=== PATIENT | female | born 1930 | race Caucasian/White ===

== ENCOUNTER 2018-05-25 11:19 | Observation (INO) ==
--- NOTE | 2018-05-25 11:44 | ED ---
HPI General Chief complaint: Chest Pain Stated complaint: Chest pain Time Seen by Provider: 05/25/18 11:29 Source: patient Mode of arrival: ambulatory Limitations: no limitations History of Present Illness HPI narrative: This 87-year-old female had chest pain while sitting in a car today. It was a left-sided pain which traveled to the right side of her chest. She is not quite sure how long it lasts she thinks about 10 minutes. She was short of breath with the pain. She is visiting here from [place]. She does have a history of coronary artery disease according to her daughter she has had an [place] in the past so the patient herself was not sure. She has not had recent chest pain. She says the pain was severe when she was having it. She is not having it now. It was quite sharp and left-sided. Patient does have a history of hiatal hernia and ate liver and onions last night. Related Data Home Medications Medication Instructions Recorded Confirmed aspirin [Aspir-81] 81 mg PO DAILY 05/25/18 05/25/18 fluoxetine 20 mg PO DAILY 05/25/18 05/25/18 furosemide [Lasix] 40 mg PO DAILY 05/25/18 05/25/18 gabapentin 15 mg/kg PO TID 05/25/18 05/25/18 gabapentin 300 mg PO DAILY 05/25/18 05/25/18 lisinopril 10 mg PO DAILY 05/25/18 05/25/18 lisinopril 10 mg PO DAILY 05/25/18 05/25/18 metoprolol succinate 25 mg PO DAILY 05/25/18 05/25/18 potassium chloride [Klor-Con M20] 20 meq PO BID 05/25/18 05/25/18 Allergies Allergy/AdvReac Type Severity Reaction Status Date / Time No Known Allergies Allergy Unverified 05/25/18 11:22 Review of Systems ROS: all other systems reviewed are negative [facility] Social History Social History Substance History: No History of Abuse Second Hand Smoke Exposure: No Smoking Status: Never smoker How Often Do You Have a Drink Containing Alcohol: Never Recent Travel in [facility] within the Last 8 Weeks: No Recent Out of Country Travel within the Last 8 Weeks: No Immunization History Tetanus Immunization: Unsure Hx Influenza Vaccine This Season: No Exam Narrative Exam Narrative: GENERAL: Well-developed female SKIN: Focused skin assessment warm/dry. HEAD: Atraumatic. Normocephalic. EYES: Pupils equal and round. No scleral icterus. No injection or drainage. ENT: No nasal bleeding or discharge. Mucous membranes pink and moist. NECK: Trachea midline. No JVD. CARDIOVASCULAR: Regular rate and rhythm. No murmur appreciated. RESPIRATORY: No accessory muscle use. Clear to auscultation. Breath sounds equal bilaterally. There is some mild left-sided chest wall tenderness GASTROINTESTINAL: Abdomen soft, non-tender, nondistended. Hepatic and splenic margins not palpable. MUSCULOSKELETAL: No obvious deformities. No clubbing. No cyanosis. No edema. NEUROLOGICAL: Awake and alert. No obvious cranial nerve deficits. Motor grossly within normal limits. Normal speech. PSYCHIATRIC: Appropriate mood and affect; insight and judgment normal. Course Initial Documented Vital Signs Temperature 97.9 F 05/25/18 11:26 Pulse Rate 80 05/25/18 11:26 Respiratory Rate 14 05/25/18 11:26 Blood Pressure 187/71 H 05/25/18 11:26 Pulse Oximetry 95 05/25/18 11:26 Last Documented Vital Signs Temperature 97.9 F 05/25/18 11:26 Pulse Rate 72 05/25/18 12:31 Respiratory Rate 16 05/25/18 12:31 Blood Pressure 135/81 05/25/18 12:31 Pulse Oximetry 95 05/25/18 12:31 Medical Decision Making [facility] Narrative Medical decision making narrative: This lady has a history of coronary artery disease and had an episode of chest pain today which lasted for about 10 minutes but was quite severe and associated with shortness of breath. Her workup at this point is negative but I think she needs further evaluation and chest pain center. Chest x-ray suggests that there may be a hiatal hernia and the patient does have a history of hiatal hernia Medical Screen Exam Complete: Yes Emergency Medical Condition: Yes Differential Diagnosis Differential Diagnosis: Differential includes chest wall pain, hiatal hernia, coronary artery disease Lab Data Result diagrams: 05/25/18 11:50 05/25/18 11:50 Lab Results 05/25/18 05/25/18 Range/Units 11:50 11:50 CBC w Diff Auto diff final WBC 9.9 (4.0-11.0) th/mm3 RBC 4.21 (4.00-5.30) mil/mm3 Hgb 13.3 (11.6-15.3) gm/dL Hct 39.4 (35.0-46.0) % MCV 93.6 (80.0-100.0) fL MCH 31.5 (27.0-34.0) pg MCHC 33.7 (32.0-36.0) % RDW 13.3 (11.6-17.2) % Plt Count 285 (150-450) th/mm3 MPV 8.2 (7.0-11.0) fL Neut % (Auto) 79.7 H (16.0-70.0) % Lymph % (Auto) 16.3 (9.0-44.0) % [place] % (Auto) 3.6 (0.0-8.0) % Eos % (Auto) 0.1 (0.0-4.0) % Baso % (Auto) 0.3 (0.0-2.0) % Neut # (Auto) 7.9 H (1.8-7.7) th/mm3 Lymph # (Auto) 1.6 (1.0-4.8) th/mm3 [place] # (Auto) 0.4 (0.0-0.9) th/mm3 Eos # (Auto) 0.0 (0.0-0.4) th/mm3 Baso # (Auto) 0.0 (0.0-0.2) th/mm3 WBC Differential . Differential Comment . Sodium 141 (136-145) meq/L Potassium 4.0 (3.5-5.1) meq/L Chloride 104 (98-107) meq/L Carbon Dioxide 27.2 (21.0-32.0) meq/L Anion Gap 10 (5-15) meq/L BUN 46 H (7-18) mg/dL Creatinine 1.40 H (0.50-1.00) mg/dL Estimated GFR 35 L (>89) mL/min Random Glucose 101 (74-106) mg/dL Calcium 8.3 L (8.5-10.1) mg/dL Total Bilirubin 0.4 (0.2-1.0) mg/dL AST 23 (15-37) U/L ALT 26 (10-53) U/L Alkaline Phosphatase 101 (45-117) U/L Troponin I Less than 0.02 L (0.02-0.05) ng/mL Total Protein 7.8 (6.4-8.2) g/dL Albumin 3.8 (3.4-5.0) g/dL Imaging Data Radiologist's impression: Chest X-Ray 05/25/18 11:40 CONCLUSION: Rounded density within the retrocardiac region of the left lung base which is indeterminate. Differential includes hiatal hernia, lobulation of the diaphragm or possible lung mass. Lateral view of the chest may be helpful for further characterization of this finding. Discharge Plan Discharge Disposition Patient Disposition: 30 Still Patient Discharge Details Diagnosis: Chest pain Physicians Team ED Provider: Maximiliano Holm Primary Care Provider: Primary Care Caitlyn Callejas Rxs /Orders / Referrals /Forms Prescriptions: No Action furosemide [Lasix] 40 mg Tablet 40 mg PO DAILY RF: 0 aspirin [Aspir-81] 81 mg Tablet,Delayed Release (Dr/Ec) 81 mg PO DAILY RF: 0 potassium chloride [Klor-Con M20] 20 mEq Tablet,Er Particles/Crystals 20 meq PO BID RF: 0 fluoxetine 20 mg Tablet 20 mg PO DAILY RF: 0 lisinopril 10 mg Tablet 10 mg PO DAILY RF: 0 lisinopril 10 mg Tablet 10 mg PO DAILY RF: 0 gabapentin 300 mg Capsule 300 mg PO DAILY RF: 0 gabapentin 100 mg Capsule 15 mg/kg PO TID RF: 0 metoprolol succinate 25 mg Tablet Extended Release 24 Hr 25 mg PO DAILY RF: 0 Discharge Instructions Patient Printed Instructions: Chest Pain (ED) Status ED Status: With Doctor
[2018-05-25 12:01] LABS: Baso % (Auto) 0.3 % (0.0-2.0); Eos % (Auto) 0.1 % (0.0-4.0); Hematocrit 39.4 % (35.0-46.0); Hemoglobin 13.3 gm/dL (11.6-15.3); Lymph # (Auto) 1.6 th/mm3 (1.0-4.8); Lymph % (Auto) 16.3 % (9.0-44.0); Mean Corpuscular HGB Conc 33.7 % (32.0-36.0); Mean Corpuscular Hemoglobin 31.5 pg (27.0-34.0); Mean Corpuscular Volume 93.6 fL (80.0-100.0); Mean Platelet Volume 8.2 fL (7.0-11.0); Mono # (Auto) 0.4 th/mm3 (0.0-0.9); Mono % (Auto) 3.6 % (0.0-8.0); Neut # (Auto) 7.9 th/mm3 (1.8-7.7); Neut % (Auto) 79.7 % (16.0-70.0); Platelet Count 285 th/mm3 (150-450); Red Blood Count 4.21 mil/mm3 (4.00-5.30); Red Cell Distribution Width 13.3 % (11.6-17.2); White Blood Count 9.9 th/mm3 (4.0-11.0)
[2018-05-25 12:13] LABS: Chloride 104 meq/L (98-107); Sodium 141 meq/L (136-145)
[2018-05-25 12:16] LABS: Calcium 8.3 mg/dL (8.5-10.1)
[2018-05-25 12:17] LABS: Albumin 3.8 g/dL (3.4-5.0); Anion Gap 10 meq/L (5-15); Blood Urea Nitrogen 46 mg/dL (7-18); Carbon Dioxide 27.2 meq/L (21.0-32.0); Glucose,Random 101 mg/dL (74-106)
[2018-05-25 12:20] LABS: Alanine Aminotransferase 26 U/L (10-53); Aspartate Aminotransferase 23 U/L (15-37); Glomerular Filtration Rate 35 mL/min (>89)
--- NOTE | 2018-05-25 12:21 | XR ---
EXAM DATE: 05/25/2018 11:40 AM EDT AGE/SEX: 87 years / Female INDICATIONS: Left sided chest pain & shortness of breath. CLINICAL DATA: This is the patient's initial encounter. Patient reports that signs and symptoms have been present for 1 day and indicates a pain score of 9/10. MEDICAL/SURGICAL HISTORY: Myocardial infarction. CAD. None. COMPARISON: No prior exams available for comparison. FINDINGS: There is a rounded density within the retrocardiac region of the left lung base which is indeterminat e. Differential includes hiatal hernia, lobulation of the diaphragm or possible lung mass. Lateral vi ew of the chest may be helpful for further characterization of this finding. There is no pulmonary ed adonay. No infiltrate is noted. The heart is normal. CONCLUSION: Rounded density within the retrocardiac region of the left lung base which is indeterminate. Differen tial includes hiatal hernia, lobulation of the diaphragm or possible lung mass. Lateral view of the c hest may be helpful for further characterization of this finding. Electronically signed by: Nixon Cisneros MD 05/25/2018 12:20 PM EDT
[2018-05-25 12:22] LABS: Total Protein 7.8 g/dL (6.4-8.2)
[2018-05-25 12:23] LABS: Alkaline Phosphatase 101 U/L (45-117)
[2018-05-25] MEDS ORDERED: Acetaminophen 500 MG Tablet PO PRN (13:16)
[2018-05-25] MEDS: Heparin - SQ 10,000 UNITS/ML Vial SQ SCH ×2 (13:27→21:09)
[2018-05-25 14:54] LABS: Bilirubin,Urine Negative (Negative); Clarity,Urine Clear (Clear); Glucose,Urine (UA) Negative (Negative); Leukocyte Esterase,Urine Negative (Negative); Nitrite,Urine Negative (Negative); Urobilinogen,Urine 0.2 mg/dL (Less than 2)
[2018-05-25 14:55] LABS: Color,Urine Straw (Yellw/Straw)
[2018-05-25 15:02] LABS: Squamous Epithelial Cell,Urine 0-5 /hpf (0-5); WBC,Urine 0-5 /hpf (0-5)
[2018-05-25 15:03] LABS: Bacteria,Urine Moderate /hpf
--- NOTE | 2018-05-25 15:19 | P.HP ---
History of Present Illness Primary Care Physician: No Primary Care Physician Chief Complaint: Chest pain History of Present Illness: This is an 87-year-old female patient with a known medical history of CAD and hypertension who presented to the ED with chest pain. Patient states that she was driving around as a passenger in the car today she developed a sudden left- sided chest pain that radiated to the right side of her chest, was characteristically heavy in nature, lasted roughly 5 minutes and then went away on its own. Patient states the severity was an 8 out of 10 at its worst on pain scale, denies any associated nausea, vomiting, sweating or shortness of breath. Patient states that she rested and drank some water and states that the pain went away. Denies any worsening factors. Patient does admit to a recent earache several weeks ago was on antibiotics with subjective fevers, states that this has resolved. She denies any recent headache, shortness of breath, dumping, nausea, vomiting, diarrhea or dysuria. She does live in [place], she is visiting here with her family, states she flew down here via plane. She does see a associate software application engineer in [place], is a relatively poor historian and does not remember the last time she underwent a stress test. She follows closely with her PCP. Denies any new changes to her medications. Patient states that she did not take any medications today. Denies any tobacco abuse. - Diagnosis (1) Chest pain Review of Systems All other systems reviewed negative except as stated in HPI PMFSH - History History Provided By: Patient - Medical History Medical History: Medical History (Last Updated 05/25/18 @ 15:58 by Janae Garcia) Coronary artery disease Hypertension - Surgical History Surgical History: Surgical History (Last Updated 05/25/18 @ 15:58 by Janae Garcia) History of appendectomy Hx of foot surgery - Family History Family History: Family History (Last Updated 05/25/18 @ 15:58 by Janae Garcia) Other Family history non-contributory - Tobacco History Second Hand Smoke Exposure: No Tobacco Use In Past 30 Days: No Smoking Status: Never smoker - Alcohol History How Often Do You Have a Drink Containing Alcohol: Never - Substance Use History Substance History: No History of Abuse - Travel History Recent Travel in the [place] Within the Last 8 Weeks: No Recent Travel Out of the Country Within the Last 8 Weeks: No - Immunization History Tetanus Immunization: Unsure Hx Influenza Vaccine This Season: No Medications and Allergies Active Medications: Active Medications Acetaminophen (Tylenol) 500 mg PO Q4H PRN PRN Reason: HEADACHE Heparin Sodium (Porcine) (Heparin Inj) 5,000 units SQ Q12HR SE[place]OUR Last Admin: 05/25/18 13:27 Dose: 5,000 units Ondansetron HCl (Zofran Inj) 4 mg IV.PUSH Q6H PRN PRN Reason: NAUSEA Sodium Chloride (Ns Flush) 2 ml IV.FLUSH BID [place] Sodium Chloride (Ns Flush) 2 ml IV.FLUSH PRN PRN PRN Reason: FLUSH AFTER USING IV ACCESS Allergies Allergy/AdvReac Type Severity Reaction Status Date / Time No Known Allergies Allergy Unverified 05/25/18 11:22 Home Medications Medication Instructions Recorded Confirmed Type aspirin [Aspir-81] 81 mg PO DAILY 05/25/18 05/25/18 History fluoxetine 20 mg PO DAILY 05/25/18 05/25/18 History furosemide [Lasix] 40 mg PO DAILY 05/25/18 05/25/18 History gabapentin 15 mg/kg PO TID 05/25/18 05/25/18 History gabapentin 300 mg PO DAILY 05/25/18 05/25/18 History lisinopril 10 mg PO DAILY 05/25/18 05/25/18 History lisinopril 10 mg PO DAILY 05/25/18 05/25/18 History metoprolol succinate 25 mg PO DAILY 05/25/18 05/25/18 History potassium chloride [Klor-Con M20] 20 meq PO BID 05/25/18 05/25/18 History Exam Vital signs: Vital Signs 05/25/18 11:26 05/25/18 11:51 05/25/18 11:52 Temperature 97.9 F Pulse Rate 80 Respiratory Rate 14 Blood Pressure 187/71 H Pulse Oximetry 95 95 98 05/25/18 12:31 Temperature Pulse Rate 72 Respiratory Rate 16 Blood Pressure 135/81 Pulse Oximetry 95 Intake & Output 05/24/18 05/25/18 05/25/18 18:59 06:59 18:59 Weight 82 kg Narrative: GENERAL: Well-developed, well-nourished patient elderly female in NAD. SKIN: Warm and dry. No rash. HEAD: Normocephalic. Atraumatic. EYES: Pupils equal and round. No scleral icterus. No injection or drainage. ENT: No nasal bleeding or discharge. Mucous membranes pink and moist. NECK: Supple. Trachea midline. CARDIOVASCULAR: Regular rate and rhythm. S1, S2 noted. No murmur appreciated. Left-sided rib pain to palpation RESPIRATORY: No accessory muscle use. Clear to auscultation. Breath sounds equal bilaterally. GASTROINTESTINAL: Abdomen soft, non-tender, nondistended. Normoactive bowel sounds x4. MUSCULOSKELETAL: No obvious deformities. Extremities without clubbing, cyanosis , or edema. NEUROLOGICAL: Awake and alert. No obvious cranial nerve deficits. Motor grossly within normal limits. 5/5 muscle strength in bilateral upper and lower extremities. Normal speech. PSYCHIATRIC: Appropriate mood and affect; insight and judgment normal. Results - Labs CBC & Chem 7: 05/25/18 11:50 05/25/18 11:50 Labs: Laboratory Results - last 24 hr 05/25/18 05/25/18 05/25/18 11:50 11:50 12:18 CBC w Diff Auto diff final WBC 9.9 RBC 4.21 Hgb 13.3 Hct 39.4 MCV 93.6 MCH 31.5 MCHC 33.7 RDW 13.3 Plt Count 285 MPV 8.2 Neut % (Auto) 79.7 H Lymph % (Auto) 16.3 [place] % (Auto) 3.6 Eos % (Auto) 0.1 Baso % (Auto) 0.3 Neut # (Auto) 7.9 H Lymph # (Auto) 1.6 [place] # (Auto) 0.4 Eos # (Auto) 0.0 Baso # (Auto) 0.0 WBC Differential . Differential Comment . Sodium 141 Potassium 4.0 Chloride 104 Carbon Dioxide 27.2 Anion Gap 10 BUN 46 H Creatinine 1.40 H Estimated GFR 35 L Random Glucose 101 Calcium 8.3 L Total Bilirubin 0.4 AST 23 ALT 26 Alkaline Phosphatase 101 Troponin I Less than 0.02 L Total Protein 7.8 Albumin 3.8 Ur Collection Type Clean catch Urine Color Straw Urine Clarity Clear Urine pH 5.0 Ur Specific [place] 1.010 Urine Protein Negative Urine Glucose (UA) Negative Urine Ketones Negative Urine Occult Blood Negative Urine Nitrate Negative Urine Bilirubin Negative Urine Urobilinogen 0.2 Ur Leukocyte Esterase Negative Urine WBC 0-5 Ur Squamous Epith Cells 0-5 Urine Bacteria Moderate H Ur Microscopic Review Microscopic reviewed - Imaging Impressions Chest X-Ray 05/25/18 11:40 CONCLUSION: Rounded density within the retrocardiac region of the left lung base which is indeterminate. Differential includes hiatal hernia, lobulation of the diaphragm or possible lung mass. Lateral view of the chest may be helpful for further characterization of this finding. Caprini VTE Risk Assessment Caprini VTE Risk Assessment: Moderate/High Risk (score >= 2) Caprini Risk Assessment Model: Point Value = 1 Point Value = 2 Point Value = 3 Point Value = 5 Age 41-60 Minor surgery BMI > 25 kg/m2 Swollen legs Varicose veins or History of unexplained or recurrent spontaneous Oral contraceptives or hormone replacement Sepsis (< 1 month) Serious lung disease, including pneumonia (< 1 month) Abnormal pulmonary function Acute myocardial infarction Congestive heart failure (< 1 month) History of inflammatory bowel disease Medical patient at bed rest Age 61-74 Arthroscopic surgery Major open surgery (> 45 min) Laparoscopic surgery (> 45 min) Malignancy Confined to bed (> 72 hours) Immobilizing plaster cast Central venous access Age >= 75 History of VTE Family history of VTE Factor V Leiden Prothrombin [id number] Lupus anticoagulant Anticardiolipin antibodies Elevated serum homocysteine Heparin-induced thrombocytopenia Other congenital or acquired thrombophilia Stroke (< 1 month) Elective arthroplasty Hip, pelvis, or leg fracture Acute spinal cord injury (< 1 month) Prophylaxis Regimen: Total Risk Factor Score Risk Level Prophylaxis Regimen 0-1 Low Early ambulation 2 Moderate Order ONE of the following: *Sequential Compression Device (SCD) *Heparin 5000 units SQ BID 3-4 Higher Order ONE of the following medications: *Heparin 5000 units SQ TID *Enoxaparin/Lovenox 40 mg SQ daily (WT < 150 kg, CrCl > 30 mL/min) *Enoxaparin/Lovenox 30 mg SQ daily (WT < 150 kg, CrCl > 10-29 mL/min) *Enoxaparin/Lovenox 30 mg SQ BID (WT < 150 kg, CrCl > 30 mL/min) AND/OR *Sequential Compression Device (SCD) 5 or more Highest Order ONE of the following medications: *Heparin 5000 units SQ TID (Preferred with Epidurals) *Enoxaparin/Lovenox 40 mg SQ daily (WT < 150 kg, CrCl > 30 mL/min) *Enoxaparin/Lovenox 30 mg SQ daily (WT < 150 kg, CrCl > 10-29 mL/min) *Enoxaparin/Lovenox 30 mg SQ BID (WT < 150 kg, CrCl > 30 mL/min) AND *Sequential Compression Device (SCD) Assessment and Plan - Assessment (1) Chest pain Code(s): R07.9 - Chest pain, unspecified Status: Acute - Plan This is a an 87-year-old female patient with Chest pain, atypical -Patient complaint of left sided chest pain x 10 minutes today. Has reproducible chest pain to palpation of left rib. -Patient has been admitted to the observation center for chest pain. Serial EKGs and serial troponins have been ordered for ruling out ACS purposes. Initial troponin flat. We will continue to monitor trend. EKG reviewed showing no ST changes to indicate any ischemia. Controlled heart rate. -Continued on cardiac telemetry, monitor for any arrhythmias overnight. -Supplemental O2 as needed, keep sats above 90%. Patient comfortable on room air. -CBC and BMP reviewed, essentially unremarkable. -Chest x-ray reviewed showing some rounded density in the left lower lung. Suggesting further imaging of the lateral view. This is been ordered. Will follow. -Cardiac diet as tolerated. -Aspirin has been given in ED. -Will continue to monitor. Supportive care. Hypertension Blood pressure elevated upon presentation. Patient did not take her medications today. Will resume home medications. Monitor blood pressure trends. DVT prophylaxis: SCDs. ambulation. Heparin. (1) Chest pain Qualifiers: Chest pain type: unspecified Qualified Code(s): R07.9 - Chest pain, unspecified
[2018-05-25 15:31] LABS: Creatine Kinase 84 U/L (26-192)
[2018-05-25] MEDS ORDERED: Furosemide 40 MG Tablet PO SCH (16:15)
[2018-05-25] MEDS ORDERED: Lisinopril 10 MG Tablet PO SCH (16:15)
--- NOTE | 2018-05-25 17:04 | XR ---
EXAM DATE: 05/25/2018 12:00 AM EDT AGE/SEX: 87 years / Female INDICATIONS: . Left sided chest pain, evaluate for left lower lung mass. CLINICAL DATA: This is the patient's subsequent encounter. Patient reports that signs and symptoms h ave been present for 1 day and indicates a pain score of 5/10. MEDICAL/SURGICAL HISTORY: . Myocardial infarction. CAD. None. COMPARISON: [facility], CHEST 1V SINGLE AP, 05/25/2018. . FINDINGS: The masslike area identified on the patient's prior chest x-ray in the left lower chest has the appearance of an eventrated hemidiaphragm, however a subdiaphragmatic mass is difficult to exclu de at this site. 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 Electronically signed by: Vianca Simon MD 05/25/2018 5:03 PM EDT
[2018-05-25 18:37] LABS: Creatine Kinase 65 U/L (26-192)
--- NOTE | 2018-05-26 08:07 | P.PNIM ---
Subjective Interval history: Follow up left sided rib pain. Patient seen and examined, sitting up in bed in [facility]. Patient slept well. No reports of any acute events overnight. Left- sided chest discomfort has improved. Chest x-ray results reviewed. There is some masslike area on her left lower rib cage. Image report given to patient advised to [place] Tums have improved. Advised to use NSAIDs and supportive therapy heat/cold therapy as needed. She is stable at this time and agreeable to plan. Physical Exam Vital signs: Vital Signs 05/25/18 11:26 05/25/18 11:51 05/25/18 11:52 Temperature 97.9 F Pulse Rate 80 Respiratory Rate 14 Blood Pressure 187/71 H Pulse Oximetry 95 95 98 05/25/18 12:31 05/25/18 16:00 05/25/18 19:29 Temperature 96.6 F L Pulse Rate 72 75 74 Respiratory Rate 16 18 Blood Pressure 135/81 158/78 H Pulse Oximetry 95 95 05/25/18 19:30 05/25/18 20:00 05/25/18 23:42 Temperature 97.5 F L Pulse Rate 75 Respiratory Rate 20 Blood Pressure 142/65 H 142/64 H Pulse Oximetry 96 97 05/25/18 23:53 05/26/18 00:00 05/26/18 04:08 Temperature 96.6 F L 97.1 F L Pulse Rate 73 74 65 Respiratory Rate 20 18 Blood Pressure 126/84 Pulse Oximetry 98 96 Intake & Output 05/25/18 05/26/18 05/26/18 18:59 06:59 18:59 Intake Total 360 / 360 0 / 0 Balance 360 / 360 0 / 0 Weight 82 kg 82.3 kg Intake: Oral 360 / 360 0 / 0 Other: # Voids 0 1 Date of Last Bowel Movement 05/24/18 # Bowel Movements 0 Weight On Admission 82 kg Narrative: GENERAL: Well-developed, well-nourished patient elderly female in [facility]. SKIN: Warm and dry. No rash. HEAD: Normocephalic. Atraumatic. EYES: Pupils equal and round. No scleral icterus. No injection or drainage. ENT: No nasal bleeding or discharge. Mucous membranes pink and moist. NECK: Supple. Trachea midline. CARDIOVASCULAR: Regular rate and rhythm. S1, S2 noted. No murmur appreciated. Left-sided rib pain to palpation RESPIRATORY: No accessory muscle use. Clear to auscultation. Breath sounds equal bilaterally. GASTROINTESTINAL: Abdomen soft, non-tender, nondistended. Normoactive bowel sounds x4. MUSCULOSKELETAL: No obvious deformities. Extremities without clubbing, cyanosis , or edema. NEUROLOGICAL: Awake and alert. No obvious cranial nerve deficits. Motor grossly within normal limits. 5/5 muscle strength in bilateral upper and lower extremities. Normal speech. PSYCHIATRIC: Appropriate mood and affect; insight and judgment normal. Results - Labs CBC & Chem 7: 05/25/18 11:50 05/25/18 11:50 Laboratory Results - last 24 hr 05/25/18 05/25/18 05/25/18 11:50 11:50 12:18 CBC w Diff Auto diff final WBC 9.9 RBC 4.21 Hgb 13.3 Hct 39.4 MCV 93.6 MCH 31.5 MCHC 33.7 RDW 13.3 Plt Count 285 MPV 8.2 Neut % (Auto) 79.7 H Lymph % (Auto) 16.3 [place] % (Auto) 3.6 Eos % (Auto) 0.1 Baso % (Auto) 0.3 Neut # (Auto) 7.9 H Lymph # (Auto) 1.6 [place] # (Auto) 0.4 Eos # (Auto) 0.0 Baso # (Auto) 0.0 WBC Differential . Differential Comment . Sodium 141 Potassium 4.0 Chloride 104 Carbon Dioxide 27.2 Anion Gap 10 BUN 46 H Creatinine 1.40 H Estimated GFR 35 L Random Glucose 101 Calcium 8.3 L Total Bilirubin 0.4 AST 23 ALT 26 Alkaline Phosphatase 101 Total Creatine Kinase Troponin I Less than 0.02 L Total Protein 7.8 Albumin 3.8 Ur Collection Type Clean catch Urine Color Straw Urine Clarity Clear Urine pH 5.0 Ur Specific [place] 1.010 Urine Protein Negative Urine Glucose (UA) Negative Urine Ketones Negative Urine Occult Blood Negative Urine Nitrate Negative Urine Bilirubin Negative Urine Urobilinogen 0.2 Ur Leukocyte Esterase Negative Urine WBC 0-5 Ur Squamous Epith Cells 0-5 Urine Bacteria Moderate H Ur Microscopic Review Microscopic reviewed 05/25/18 05/25/18 14:50 17:55 CBC w Diff WBC RBC Hgb Hct MCV MCH MCHC RDW Plt Count MPV Neut % (Auto) Lymph % (Auto) [place] % (Auto) Eos % (Auto) Baso % (Auto) Neut # (Auto) Lymph # (Auto) [place] # (Auto) Eos # (Auto) Baso # (Auto) WBC Differential Differential Comment Sodium Potassium Chloride Carbon Dioxide Anion Gap BUN Creatinine Estimated GFR Random Glucose Calcium Total Bilirubin AST ALT Alkaline Phosphatase Total Creatine Kinase 84 65 Troponin I Less than 0.02 L Less than 0.02 L Total Protein Albumin Ur Collection Type Urine Color Urine Clarity Urine pH Ur Specific [place] Urine Protein Urine Glucose (UA) Urine Ketones Urine Occult Blood Urine Nitrate Urine Bilirubin Urine Urobilinogen Ur Leukocyte Esterase Urine WBC Ur Squamous Epith Cells Urine Bacteria Ur Microscopic Review - Imaging Impressions Chest X-Ray 05/25/18 00:00 CONCLUSION: Probable eventrated hemidiaphragm on the left side corresponding to the masslike area seen on the patient's prior chest x-ray could be further characterized with chest CT without contrast based on clinical grounds. Chest X-Ray 05/25/18 11:40 CONCLUSION: Rounded density within the retrocardiac region of the left lung base which is indeterminate. Differential includes hiatal hernia, lobulation of the diaphragm or possible lung mass. Lateral view of the chest may be helpful for further characterization of this finding. Assessment and Plan - Assessment (1) Chest pain Code(s): R07.9 - Chest pain, unspecified Status: Acute - Plan This is a an 87-year-old female patient with Chest pain, atypical Left-sided chest mass -Patient complaint of left sided chest pain x 10 minutes today. Has reproducible chest pain to palpation of left rib. -Patient has been admitted to the observation center for chest pain. Serial EKGs and serial troponins have been ordered for ruling out ACS purposes. Troponins flat. EKG reviewed showing no ST changes to indicate any ischemia. Controlled heart rate. -Continued on cardiac telemetry, monitor for any arrhythmias overnight. No evidence overnight. -Supplemental O2 as needed, keep sats above 90%. Patient comfortable on room air. No shortness of breath. -CBC and BMP reviewed, essentially unremarkable. -Chest x-ray reviewed showing some rounded density in the left lower lung. PA and LAT x-ray ordered and reviewed showing left-sided mass. Advised patient to follow-up with PCP when she gets back to [place]. Supportive care until that time. NSAIDs, heat therapy. -Cardiac diet as tolerated. Tolerating p.o. intake. No abdominal pain, nausea or vomiting. -Aspirin has been given in ED. -Continue on home medications. Hypertension Blood pressure elevated upon presentation. Blood pressure stable. Will resume home medications. DVT prophylaxis: SCDs. ambulation. Heparin. DC home. Follow-up PCP. Activity as tolerated. Heart healthy diet. Prescriptions as ordered. (1) Chest pain Qualifiers: Chest pain type: unspecified Qualified Code(s): R07.9 - Chest pain, unspecified
[2018-05-26 08:42] VITALS: BP 130/60; PULSE 68; RESP 16; TEMP 98; O2SAT 95
[2018-05-26] MEDS ORDERED: FLUoxetine 20 MG Capsule PO SCH (09:00)
[2018-05-26] MEDS ORDERED: Gabapentin 300 MG Capsule PO SCH (09:00)
--- NOTE | 2018-05-26 13:45 | ECG ---
Date Performed: 05/25/2018 Time Performed: 17:49:11 PTAGE: 87 years EKG: Sinus rhythm WITH FIRST DEGREE AV BLOCK LOW QRS VOLTAGE IN PRECORDIAL LEADS NONSPECIFIC T-WAVE ABNORMALITY ABNORM AL ECG PREVIOUS TRACING : 05/25/2018 15.22 DOCTOR: Dong Hahn Interpretating Date/Time 05/26/2018 13:43:49
--- NOTE | 2018-05-26 13:45 | ECG ---
Date Performed: 05/25/2018 Time Performed: 11:27:15 PTAGE: 87 years EKG: Sinus rhythm WITH FIRST DEGREE AV BLOCK BORDERLINE LEFT AXIS DEVIATION NONSPECIFIC T-WAVE ABNORMALITY ABNORMAL EC G NO PREVIOUS TRACING DOCTOR: Dong Hahn Interpretating Date/Time 05/26/2018 13:45:13
--- NOTE | 2018-05-26 13:45 | ECG ---
Date Performed: 05/25/2018 Time Performed: 15:22:55 PTAGE: 87 years EKG: Sinus rhythm WITH FIRST DEGREE AV BLOCK LOW QRS VOLTAGE IN PRECORDIAL LEADS ABNORMAL ECG PREVIOUS TRACING : 05/25/2018 11.27 Since previous tracing, no significant change noted DOCTOR: Dong Hahn Interpretating Date/Time 05/26/2018 13:44:16
== END 2018-05-26 09:45 | disposition home or self-care (01) ==
LOC: PHED 11:19 → PHEDA 11:19 → PH3 14:50
PROVIDERS: ADMIT Internal Medicine; ATTEND Internal Medicine